=== PATIENT | male | born 1950 | race Caucasian/White ===

== ENCOUNTER 2021-08-28 10:31 | Emergency (ER) | payer MEDICARE ==
[~2021-08-28] VITALS: Ht 200.7 cm; Wt 113.6 kg
[~2021-08-28 10:31] MED LIST: ACET325T21 PO; CALC1TAB54 PO; CALC200T23 PO; HYDR-2761 PO; OXYC5TAB4 PO; SENN-189 PO
[2021-08-28] MEDS ORDERED: PANTOPRAZOLE SODIUM IV DRIP 80 MG in IV NORMAL SALINE 100ML 100 ML IV ONE (11:15)
[2021-08-28] MEDS ORDERED: IV NORMAL SALINE 1000ML BAG 1,000 ML IV ONE (11:15)
[2021-08-28] MEDS ORDERED: ONDANSETRON PF 4 MG/2 ML VIAL. IVP ONE (11:15)
[2021-08-28 11:29] LABS: FECAL OB PT NEGATIVE (NEG)
--- NOTE | 2021-08-28 11:33 | RAD ---
XR ABDOMEN 1V History: Reason: Bloody emesis / Spl. Instructions: / History: Technique: Supine views the abdomen. Comparison: None. Findings: Mildly prominent air-filled loops of small bowel throughout the abdomen. Air and stool scattered thro ughout the colon. Moderate gaseous distention of the stomach. Left hip arthroplasty. Multilevel lumba r spondylosis. Impression: 1. Moderate gaseous distention of the stomach. Electronically signed by: Dung Rowe DO (08/28/2021 11:31 AM) [place]
--- NOTE | 2021-08-28 11:34 | RAD ---
XR CHEST 1V History: Reason: Coffee-ground emesis / Spl. Instructions: / History: Comparison: None. Findings: Mild linear mid and lower lung atelectasis. No consolidation or pleural effusion. Normal heart size. No pneumothorax. Impression: 1. No acute cardiopulmonary process. Electronically signed by: Dung Rowe DO (08/28/2021 11:31 AM) [facility]
[2021-08-28 11:43] LABS: BASO # 0.1 x10^3/uL (0.0-0.2); BASO % 0 % (0-3); EOS % 0 % (0-3); HEMATOCRIT 41.6 % (39.0-53.0); HEMOGLOBIN 13.8 g/dL (13.0-17.5); LYMPH # 0.7 x10^3/uL (1.0-4.8); LYMPH % 4 % (24-48); MEAN CORPUSCULAR HEMOGLOBIN 30 pg (25-35); MEAN CORPUSCULAR HGB CONC 33 g/dL (31-37); MEAN CORPUSCULAR VOLUME 91 fL (79-100); MONO # 0.7 x10^3/uL (0.0-1.1); MONO % 4 % (0-9); NEUT # 14.2 x10^3/uL (1.8-7.7); NEUT % 91 % (31-73); PLATELET COUNT 348 x10^3/uL (140-400); RED BLOOD COUNT 4.55 x10^6/uL (4.30-5.70); RED CELL DISTRIBUTION WIDTH 17.4 % (11.5-14.5); WHITE BLOOD COUNT 15.7 x10^3/uL (4.0-11.0)
[2021-08-28 11:56] LABS: CALCIUM 9.8 mg/dL (8.5-10.1); CREATININE 1.1 mg/dL (0.7-1.3); GFR 66.2; POTASSIUM 3.4 mmol/L (3.5-5.1); PROTHROMBIN TIME PATIENT 18.1 SEC (11.7-14.0)
[2021-08-28 12:02] LABS: ALBUMIN 3.2 g/dL (3.4-5.0); ALBUMIN/GLOBULIN RATIO 0.8 (1.0-1.7); TOTAL BILIRUBIN 0.6 mg/dL (0.2-1.0); TOTAL PROTEIN 7.4 g/dL (6.4-8.2)
--- NOTE | 2021-08-28 12:02 | PHYS DOC ---
Past Medical History Additional Past Medical Histor: FALLS,NSTEMI,HYPERSOMNIA,RHABDOMYOLOSIS,VENOUS INSUFFICIENCY Past Surgical History: Other Additional Past Surgical Histo: EYE, FINGER SURG?,UNKNOWN Smoking Status: Former Smoker Alcohol Use: None General Adult EDM: Chief Complaint: HEMATEMESIS/VOMITING BLOOD HPI: HPI: Patient is a 71-year-old male presents to the emergency department chief com plaint of bloody urine. Patient was transported here by [facility] who reports they were told patient had coffee-ground emesis yesterday and is sent here today for evaluation of coffee-ground emesis. Patient denies any coffee-ground emesis stating that it looked more like chocolate brown however has not vomited today, denies nausea, abdominal pains, denies chest pains, shortness of breath, or body aches. Patient denies shortness of breath. Patient states he has noticed blood in his urine for the past 2 days. Patient reports he did have some right-sided flank pain last night but has since resolved. Patient denies any chief complaints at this time stating that he feels fine. Patient denies other physical complaints or physical concerns. Patient was sent here by [facility], has a history of chronic skin and nail fungal disease, cognitive communication deficit, essential hypertension, heart failure, hyperlipidemia, major depressive disorder, severe morbid obesity, GERD, fibromyalgia, venous insufficiency. Review of Systems: Review of Systems: 14 body systems of review of systems have been reviewed. See HPI for pertinent positives and negative responses, otherwise all other systems are negative, nonpertinent or noncontributory. Constitutional: Negative except as outlined in HPI above. Skin: Negative except as outlined in HPI above. Eyes: Negative except as outlined in HPI above. HENT: Negative except as outlined in HPI above. Respiratory: Negative except as outlined in HPI above. Cardiovascular: Negative except as outlined in HPI above. GI: Negative except as outlined in HPI above. : Negative except as outlined in HPI above. Musculoskeletal: Negative except as outlined in HPI above. Integument: Negative except as outlined in HPI above. Neurologic: Negative except as outlined in HPI above. Endocrine: Negative except as outlined in HPI above. Lymphatic: Negative except as outlined in HPI above. Psychiatric: Negative except as outlined in HPI above. Heart Score: C/O Chest Pain: No Risk Factors: Risk Factors: DM, Current or recent (<one month) smoker, HTN, HLP, family history of CAD, obesity. Risk Scores: Score 0 - 3: 2.5% MACE over next 6 weeks - Discharge Home Score 4 - 6: 20.3% MACE over next 6 weeks - Admit for Clinical Observation Score 7 - 10: 72.7% MACE over next 6 weeks - Early Invasive Strategies Current Medications: Current Medications Medications (Trade) Dose Ordered Sig/Lynn Start Time Stop Time Status Last Admin Dose Admin Ondansetron HCl (Zofran) 4 mg 1X ONCE 08/28/21 11:15 08/28/21 11:16 DC 08/28/21 11:41 4 MG Pantoprazole Sodium 80 mg/ Sodium Chloride 100 ml @ 10 mls/hr 1X ONCE 08/28/21 11:15 08/28/21 21:14 08/28/21 11:41 10 MLS/HR Sodium Chloride 1,000 ml @ 1,000 mls/hr 1X ONCE 08/28/21 11:15 08/28/21 12:14 08/28/21 11:41 1,000 MLS/HR Allergies: Allergies: Allergies Coded Allergies Type Severity Reaction Last Updated Verified Sulfa (Sulfonamide Antibiotics) Allergy Intermediate 05/21/21 Yes dicyclomine Allergy Intermediate UNKNOWN 08/28/21 Yes Physical Exam: PE: Constitutional: Well developed, well nourished, no acute distress, non-toxic appearance. 71-year-old male in no apparent distress. HENT: Normocephalic, atraumatic. Oropharynx moist, pink, no deep tissue infectious process appreciated, no lymphadenopathy of the head or neck, no malocclusion, no drooling, no trismus, no signs of coffee-ground emesis in oral cavity, normal dentition. Eyes: Conjunctiva normal, no discharge. Neck: Normal range of motion, no stridor. Cardiovascular: No cyanosis appreciated, distal cap refill less than 2 seconds. Lungs & Thorax: Patient is in no respiratory distress, no audible adventitious lung sounds appreciated. Abdomen: Nontender, no abnormalities noted. Skin: Warm, dry, no erythema, no rash. Excoriation to periarea. Back: No tenderness, no deformities. Extremities: No tenderness, no cyanosis, no clubbing, ROM intact, no edema. [] Neurologic: Alert and oriented X 3, normal motor function, normal sensory function, no focal deficits noted. Psychologic: Affect normal, judgement normal, mood normal. : Examination performed with ED staff nurse at bedside for publicist, test for fecal occult blood, normal anal sphincter tone, no peng blood noted on stool, sample sent for occult blood, genitals excoriated without open lesions, blood noted in patient's adult brief. No discharge from urinary meatus appreciated. Current Patient Data: Labs: Laboratory Tests Test 08/28/21 10:45 08/28/21 11:25 08/28/21 12:50 Stool Occult Blood Negative White Blood Count 15.7 x10^3/uL Red Blood Count 4.55 x10^6/uL Hemoglobin 13.8 g/dL Hematocrit 41.6 % Mean Corpuscular Volume 91 fL Mean Corpuscular Hemoglobin 30 pg Mean Corpuscular Hemoglobin Concent 33 g/dL Red Cell Distribution Width 17.4 % Platelet Count 348 x10^3/uL Neutrophils (%) (Auto) 91 % Lymphocytes (%) (Auto) 4 % Monocytes (%) (Auto) 4 % Eosinophils (%) (Auto) 0 % Basophils (%) (Auto) 0 % Neutrophils # (Auto) 14.2 x10^3/uL Lymphocytes # (Auto) 0.7 x10^3/uL Monocytes # (Auto) 0.7 x10^3/uL Eosinophils # (Auto) 0.0 x10^3/uL Basophils # (Auto) 0.1 x10^3/uL Segmented Neutrophils % 89 % Band Neutrophils % 1 % Lymphocytes % 6 % Monocytes % 4 % Platelet Estimate Adequate Anisocytosis Slight Prothrombin Time 18.1 SEC Prothromb Time International Ratio 1.5 Activated Partial Thromboplast Time 41 SEC Sodium Level 147 mmol/L Potassium Level 3.4 mmol/L Chloride Level 107 mmol/L Carbon Dioxide Level 29 mmol/L Anion Gap 11 Blood Urea Nitrogen 29 mg/dL Creatinine 1.1 mg/dL Estimated GFR (Cockcroft-Gault) 66.2 BUN/Creatinine Ratio 26 Glucose Level 102 mg/dL Calcium Level 9.8 mg/dL Total Bilirubin 0.6 mg/dL Aspartate Amino Transf (AST/SGOT) 38 U/L Alanine Aminotransferase (ALT/SGPT) 25 U/L Alkaline Phosphatase 143 U/L Creatine Kinase 56 U/L Creatine Kinase MB (Mass) 2.0 ng/mL Creatine Kinase MB Relative Index % Troponin I High Sensitivity 13 ng/L Total Protein 7.4 g/dL Albumin 3.2 g/dL Albumin/Globulin Ratio 0.8 Urine Collection Type Unknown Urine Color Red Urine Clarity Cloudy Urine pH 8.5 Urine Specific [place] 1.015 Urine Protein >=300 mg/dL Urine Glucose (UA) Negative mg/dL Urine Ketones (Stick) 15 mg/dL Urine Blood Large Urine Nitrite Negative Urine Bilirubin Small Urine Urobilinogen Dipstick 1.0 mg/dL Urine Leukocyte Esterase Moderate Urine RBC >40 /HPF Urine WBC 20-40 /HPF Urine Bacteria Few /HPF Current Medications Medications (Trade) Dose Ordered Sig/Lynn Route PRN Reason Start Time Stop Time Status Last Admin Dose Admin Sodium Chloride 1,000 ml @ 1,000 mls/hr 1X ONCE IV 08/28/21 11:15 08/28/21 12:14 DC 08/28/21 11:41 Ondansetron HCl (Zofran) 4 mg 1X ONCE IVP 08/28/21 11:15 08/28/21 11:16 DC 08/28/21 11:41 Pantoprazole Sodium 80 mg/ Sodium Chloride 100 ml @ 10 mls/hr 1X ONCE IV 08/28/21 11:15 08/28/21 21:14 08/28/21 11:41 Iohexol (Omnipaque 300 Mg/ml) 75 ml 1X ONCE IV 08/28/21 13:45 08/28/21 13:46 DC 08/28/21 14:00 Info (CONTRAST GIVEN -- Rx MONITORING) 1 each PRN DAILY PRN MC SEE COMMENTS 08/28/21 13:45 08/30/21 13:44 Laboratory Tests Test 08/28/21 10:45 08/28/21 11:25 Stool Occult Blood Negative (NEG) White Blood Count 15.7 x10^3/uL (4.0-11.0) H Red Blood Count 4.55 x10^6/uL (4.30-5.70) Hemoglobin 13.8 g/dL (13.0-17.5) Hematocrit 41.6 % (39.0-53.0) Mean Corpuscular Volume 91 fL (79-100) Mean Corpuscular Hemoglobin 30 pg (25-35) Mean Corpuscular Hemoglobin Concent 33 g/dL (31-37) Red Cell Distribution Width 17.4 % (11.5-14.5) H Platelet Count 348 x10^3/uL (140-400) Neutrophils (%) (Auto) 91 % (31-73) H Lymphocytes (%) (Auto) 4 % (24-48) L Monocytes (%) (Auto) 4 % (0-9) Eosinophils (%) (Auto) 0 % (0-3) Basophils (%) (Auto) 0 % (0-3) Neutrophils # (Auto) 14.2 x10^3/uL (1.8-7.7) H Lymphocytes # (Auto) 0.7 x10^3/uL (1.0-4.8) L Monocytes # (Auto) 0.7 x10^3/uL (0.0-1.1) Eosinophils # (Auto) 0.0 x10^3/uL (0.0-0.7) Basophils # (Auto) 0.1 x10^3/uL (0.0-0.2) Platelet Estimate Pending Prothrombin Time 18.1 SEC (11.7-14.0) H Prothrombin Time INR 1.5 (0.8-1.1) H Activated Partial Thromboplast Time 41 SEC (24-38) H Sodium Level 147 mmol/L (136-145) H Potassium Level 3.4 mmol/L (3.5-5.1) L Chloride Level 107 mmol/L (98-107) Carbon Dioxide Level 29 mmol/L (21-32) Anion Gap 11 (6-14) Blood Urea Nitrogen 29 mg/dL (8-26) H Creatinine 1.1 mg/dL (0.7-1.3) Estimated GFR (Cockcroft-Gault) 66.2 BUN/Creatinine Ratio 26 (6-20) H Glucose Level 102 mg/dL (70-99) H Calcium Level 9.8 mg/dL (8.5-10.1) Total Bilirubin Pending Aspartate Amino Transferase (AST) Pending Alanine Aminotransferase (ALT) Pending Alkaline Phosphatase Pending Total Protein Pending Albumin Pending Albumin/Globulin Ratio Pending Laboratory Tests 08/28/21 11:25 Laboratory Tests 08/28/21 11:25 Vital Signs: Vital Signs Date Time Temp Pulse Resp B/P (MAP) Pulse Ox O2 Delivery O2 Flow Rate FiO2 08/28/21 10:31 99.1 87 20 146/86 (106) Room Air 99.1 EKG: EKG: EKG performed at 1134 by ED nursing staff shows a normal sinus rhythm with a left axis deviation otherwise no ectopy appreciated heart rate 82 bpm, OK interval 0.170, QTc interval 0.480, no acute STEMI, no ACS, no acute ischemia appreciated, EKG interpreted by ED attending physician Dr. Madrigal. Radiology/Procedures: Radiology/Procedures: PATIENT: KRZYSZTOF ANAND ACCOUNT: [id number] : 1950 LOCATION: ER AGE: 71 SEX: M EXAM STATUS: PRE ER ORD. PHYSICIAN: MILAN COLÓN APRN REASON: Coffee-ground emesis PROCEDURE: CHEST AP ONLY XR CHEST 1V History: Reason: Coffee-ground emesis / Spl. Instructions: / History: Comparison: None. Findings: Mild linear mid and lower lung atelectasis. No consolidation or pleural effusion. Normal heart size. No pneumothorax. Impression: 1. No acute cardiopulmonary process. Electronically signed by: Dung Rowe DO (08/28/2021 11:31 AM) [facility] PROCEDURE: KUB XR ABDOMEN 1V History: Reason: Bloody emesis / Spl. Instructions: / History: Technique: Supine views the abdomen. Comparison: None. Findings: Mildly prominent air-filled loops of small bowel throughout the abdomen. Air and stool scattered throughout the colon. Moderate gaseous distention of the stomach. Left hip arthroplasty. Multilevel lumbar spondylosis. Impression: 1. Moderate gaseous distention of the stomach. Electronically signed by: Dung Rowe DO (08/28/2021 11:31 AM) [facility] CT ABD PELV W/ IV CONTRST ONLY INDICATION: Reason: Coffee-ground emesis, r/O SB obstruction;OMNI 300,75ML / Spl. Instructions: / History: . COMPARISON: Plain film from earlier same day TECHNIQUE: Axial CT images obtained through the abdomen and pelvis with contrast. One or more of the following individualized dose reduction techniques were utilized for this examination: 1. Automated exposure control; 2. Adjustment of the mA and/or kV according to patient size; 3. Use of iterative reconstruction technique. FINDINGS: Left hemidiaphragm is elevated and portions of the left upper quadrant of the abdomen are outside of the field of view. Patchy opacity at right lung base. Atherosclerotic disease throughout the abdominal aorta. There is also atherosclerotic disease within the branch vessels. No intrahepatic bile duct dilation. No peripancreatic fluid collection. Spleen is partially seen without gross abnormality. Lobulated appearance of the left kidney without left-sided hydronephrosis. Left hip arthroplasty changes with associated artifact obscuring portions of pelvis. Urinary bladder partially distended with some wall thickening and adjacent haziness to the fat. Multiple nonobstructive right renal stones. Mild right-sided hydronephrosis with a 2 mm right proximal ureter stone. Exophytic lesion at the lower pole of the right kidney which does not measure as simple cyst measuring up to approximately 16 mm. Additional low-density right renal lesion. Fatty atrophy of the musculature. Fat-containing structure within the pelvis with some higher density periphery. This measures up to approximately 38 mm. Nonspecific appearance with some possible causes including a region of fat necrosis or a fat-containing mass such as lipoma or teratoma. Colonic diverticulosis. No periappendiceal inflammatory changes. No dilated loops of bowel to suggest obstruction. Fatty atrophy of the musculature. Severe degenerative changes the spine with scoliotic curvature and multilevel central canal and neural foraminal stenosis. Osseous demineralization. IMPRESSION: * Mild right-sided hydronephrosis with right proximal ureter stone. Multiple additional nonobstructive right renal stones. * Right renal lesion which does not measure as a simple cyst. Nonemergent CT, MRI or ultrasound renal protocol could further assess whether this is solid or cystic. * Patchy opacity at right lung base which could be from atelectasis or infiltrate. Elevation of the left hemidiaphragm * Wall thickening of urinary bladder. Possible causes would include cystitis, chronic urinary retention or bladder wall neoplasm. Electronically signed by: Jarrett Aranda MD (08/28/2021 2:19 PM) [id number] Course & Med Decision Making: Course & Med Decision Making Pertinent Labs and Imaging studies reviewed. (See chart for details) 71-year-old male, vital signs reviewed, presents emergency department with chief complaint of bloody urine, however per [facility] statement patient was sent here for coffee-ground emesis. Patient denies coffee-ground emesis. Will order EKG, labs, fecal occult blood, urinalysis assay. Will give 1 L no rmal saline, 4 mg Zofran for reported nausea from [facility], 1 L normal saline for reported vomiting. Chest x-ray, KUB x-ray to rule out small bowel obstruction. Chest x-ray nonconcerning, KUB inconclusive for small bowel obstruction will order CT abdomen pelvis with IV contrast. CT abdomen pelvis reveals kidney stone on right, 2 mm, discuss this with patient, patient denies experiencing thunderclap onset of right-sided pain however did report right-sided pain last night and woke up this morning without pain. Patient's urine is infected, hematuria noted. CT imaging also abnormal for lesion with recommended follow-up outpatient. Patient has not vomited during ER stay, will p.o. challenge if no emesis will discharge back to [facility] with diagnosis of kidney stone with follow-up with urology, primary care related to abnormal CT finding. After period of time, patient tolerating p.o. challenge without nausea or vomiting. Patient continues to deny complaints. Will discharge back to [facility] with diagnosis of abnormal CT finding, kidney stone, urinary tract infection. Will treat with short regimen of Flomax, Keflex for urinary tract infection. Marvin Disclaimer: Marvin Disclaimer: This electronic medical record was generated, in whole or in part, using a voice recognition dictation system. Departure Departure Impression: Primary Impression: Kidney stone on right side Additional Impressions: Abnormal urinalysis Abnormal CT of the abdomen Disposition: 01 HOME / SELF CARE / HOMELESS Condition: GOOD Referrals: MILAN RENEE (PCP) Patient Instructions: Kidney Stones Additional Instructions: Your seen today in the emergency department for blood in your urine. There was a report that you had coffee-ground emesis however you have denied this. You have not vomited during your stay in the emergency department. Your hemoglobin within normal limits, you did have blood in your urinalysis that is suggestive of urinary tract infection, I am starting you on an antibiotic called Keflex please take as directed until complete. I am also prescribing you a short regimen of Flomax to assist in passing this kidney stone. As we discussed you did have an abnormal finding on your CT scan, please follow-up with your primary care physician for further investigation of this abnormal CT scan finding. Please follow-up with a urologist soon for your kidney stone. You may take [id number] Tylenol and or Motrin for discomfort. Return to the emergency department for worsening symptoms or other concerns. Thank you for visiting our Emergency Department. It was a pleasure taking care of you today in the emergency department and we appreciate you trusting us with your care. If any additional problems come up don't hesitate to return to visit us. Please follow up with your primary care provider so they can plan additional care if needed and know about the problem that you had. If symptoms worsen come back to the E mergency Department. Any concerning symptoms that start such as chest pain, shortness of air, weakness or numbness on one side of the body, running high fevers or any other concerning symptoms return to the ER. EMERGENCY DEPARTMENT GENERAL DISCHARGE INSTRUCTIONS Thank you for coming to [facility] Emergency Department (ED) today and trusting us with you care. We trust that you had a positive experience in our Emergency Department. If you wish to speak to the department management, you may call the Director at [phone]. YOUR FOLLOW UP INSTRUCTIONS ARE FOLLOWS: 1. Do you have a private Doctor? If you do not have a private doctor, please ask for a resource list of physicians or clinics that may be able to assist you with follow up care. 2. The Emergency Physicain has interpreted your x-rays. The X-Ray specialist will also review them. If there is a change in the findings, you will be notified in 48 hours when at all possible. 3. A lab test or culture has been done, your results will be reviewed and you will be notified if you need a change in treatment. ADDITIONAL INSTRUCTIONS AND INFORMATION: 1. Your care today has been supervised by a physician who is specially trained in emergency care. Many problems require more than one evaluation for a complete diagnosis and treatment. We recommend that you schedule your follow up appointment as recommended to ensure complete treatment of you illness or injury. If you are unable to obtain follow up care and continue to have a problem, or if your condition worsens, we recommend that you return to the ED. 2. We are not able to safely determine your condition over the phone nor are we able to give sound medical advice over the phone. For these safety reasons, if you call for medical advice we will ask you to come to the ED for further evaluation. 3. If you have any questions regarding these discharge instructions please call the ED at [phone]. SAFETY INFORMATION: In the interest of safety, wellness, and injury prevention; we encourage you to wear your sealbelt, if you smoke; quite smoking, and we encourage family to use a protective helmet for bicycling and other sporting events that present an increased risk for head injury. IF YOUR SYMPTOMS WORSEN OR NEW SYMPTOMS DEVELOP, OR YOU HAVE CONCERNS ABOUT YOUR CONDITION; OR IF YOUR CONDITION WORSENS WHILE YOU ARE WAITING FOR YOUR FOLLOW UP APPOINTMENT; EITHER CONTACT YOUR PRIMARY CARE DOCTOR, THE PHYSICIAN WHOSE NAME AND NUMBER YOU WERE GIVEN, OR RETURN TO THE ED IMMEDIATELY. Scripts Tamsulosin Hcl (FLOMAX) 0.4 Mg Cap.er.24h 1 CAP PO DAILY for 5 Days, #5 CAP 0 Refills Prov: MILAN COLÓN APRN 08/28/21 Cephalexin (CEPHALEXIN) 500 Mg Tablet 1 TAB PO BID for UTI for 7 Days, #14 TAB 0 Refills Prov: MILAN COLÓN APRN 08/28/21 MILAN COLÓN APRN Aug 28, 2021 12:02
[2021-08-28 12:10] LABS: CREATINE KINASE 56 U/L (39-308)
[2021-08-28 13:08] LABS: BILIRUBIN,URINE SMALL (NEG); CLARITY,URINE CLOUDY; COLOR,URINE RED; NITRITE,URINE NEGATIVE (NEG); PH,URINE 8.5 (<5.0-8.0); PROTEIN,URINE >=300 mg/dL (NEG-TRACE)
[2021-08-28 13:10] LABS: % BANDS 1 % (0-9); % LYMPHS 6 % (24-48); % MONOS 4 % (0-10); % SEGS 89 % (35-66); ANISOCYTOSIS SLIGHT; PLT ESTIMATE ADEQUATE (ADEQUATE)
[2021-08-28 13:28] LABS: BACTERIA,URINE FEW /HPF (0-FEW); RBC,URINE >40 /HPF (0-2); WBC,URINE 20-40 /HPF (0-4)
[2021-08-28] MEDS ORDERED: CONTRAST GIVEN. MC PRN (13:45)
[2021-08-28] MEDS ORDERED: IOHEXOL 300 MG/ML 100ML VIAL. IV ONE (13:45)
--- NOTE | 2021-08-28 14:22 | RAD ---
INDICATION: Reason: Coffee-ground emesis, r/O SB obstruction;OMNI 300,75ML / Spl. Instructions: / Hi story: . COMPARISON: Plain film from earlier same day TECHNIQUE: Axial CT images obtained through the abdomen and pelvis with contrast. One or more of the following individualized dose reduction techniques were utilized for this examinat ion: 1. Automated exposure control; 2. Adjustment of the mA and/or kV according to patient size; 3 . Use of iterative reconstruction technique. FINDINGS: Left hemidiaphragm is elevated and portions of the left upper quadrant of the abdomen are outside of the field of view. Patchy opacity at right lung base. Atherosclerotic disease throughout the abdominal aorta. There is also atherosclerotic disease within the branch vessels. No intrahepatic bile duct dilation. No peripancreatic fluid collection. Spleen is partially seen without gross abnormality. Lobulated appearance of the left kidney without left-sided hydronephrosis. Left hip arthroplasty baldwin ges with associated artifact obscuring portions of pelvis. Urinary bladder partially distended with some wall thickening and adjacent haziness to the fat. Multiple nonobstructive right renal stones. Mild right-sided hydronephrosis with a 2 mm right proxima l ureter stone. Exophytic lesion at the lower pole of the right kidney which does not measure as simple cyst measurin g up to approximately 16 mm. Additional low-density right renal lesion. Fatty atrophy of the musculature. Fat-containing structure within the pelvis with some higher density periphery. This measures up to ap proximately 38 mm. Nonspecific appearance with some possible causes including a region of fat necrosi s or a fat-containing mass such as lipoma or teratoma. Colonic diverticulosis. No periappendiceal inflammatory changes. No dilated loops of bowel to suggest obstruction. Fatty atrophy of the musculature. Severe degenerative changes the spine with scoliotic curvature and multilevel central canal and neura l foraminal stenosis. Osseous demineralization. IMPRESSION: * Mild right-sided hydronephrosis with right proximal ureter stone. Multiple additional nonobstructi ve right renal stones. * Right renal lesion which does not measure as a simple cyst. Nonemergent CT, MRI or ultrasound micky l protocol could further assess whether this is solid or cystic. * Patchy opacity at right lung base which could be from atelectasis or infiltrate. Elevation of the left hemidiaphragm * Wall thickening of urinary bladder. Possible causes would include cystitis, chronic urinary retent ion or bladder wall neoplasm. Electronically signed by: Jarrett Aranda MD (08/28/2021 2:19 PM) [id number]
[2021-08-28] MEDS ORDERED: TAMS0.4C97 PO ×2 (15:57→16:10)
[2021-08-28] MEDS ORDERED: CEPH500T PO ×2 (15:57→16:10)
[2021-08-28 16:11] VITALS: BP 116/87
--- NOTE | 2021-08-28 20:23 | EKG ---
[facility] [address] [place] [address] Test Date: 2021-08-28 Test Time: 11:34:05 Pat Name: [id number] ANAND Department: Room: Gender: M [employer]: : 1950 Requested By: MILAN COLÓN Order Number: [id number] Reading MD: Hector Huerta Measurements Intervals [place] Rate: 82 P: 22 HI: 170 QRS: -37 QRSD: 104 T: 21 QT: 408 QTc: 480 Interpretive Statements SINUS RHYTHM ABNORMAL LEFT AXIS DEVIATION LEFT ANTERIOR FASCICULAR BLOCK PROLONGED QT ABNORMAL ECG RI6.01 Compared to ECG 05/20/2021 16:14:32 Left-axis deviation now present Left anterior fascicular block now present Prolonged QT interval now present Electronically Signed On 08-29-2021 9:02:45 PHARMACY ASSOCIATE by Hector Huerta
== END 2021-08-28 17:01 | disposition home or self-care (01) ==
LOC: ER 10:31
DX: N13.2 Hydronephrosis with renal and ureteral calculous obstruction (principal); Z87.891 Personal history of nicotine dependence; Z88.2 Allergy status to sulfonamides; Z88.1 Allergy status to other antibiotic agents
CPT/HCPCS: 36415; 71045; 74018; 74177; 80053; 81001; 82274; 82553; 84484; 85007; 85025; 85610; 85730; 87086; 93005; 96365; 96366; 96375; 99285; C9113; J2405; J7030; P9612; Q9967; 87077